=== PATIENT | male | born 1995 | race African-American/Black ===

== ENCOUNTER 2017-01-06 19:43 | Emergency (ER) | payer MEDICAID ==
[~2017-01-06] VITALS: Ht 185.4 cm; Wt 98.0 kg
[~2017-01-06 19:43] MED LIST: ALBU05
[2017-01-06] MEDS ORDERED: KETOROLAC 30MG/ML VIAL IV STA (20:50)
[2017-01-06] MEDS ORDERED: ONDANSETRON HCL 4MG/2ML VIAL IV STA (20:50)
[2017-01-06] MEDS ORDERED: SODIUM CHLORIDE 0.9% 1,000 ML IV ONE (20:50)
[2017-01-06 21:26] LABS: BASOPHILS % 0.3 % (0.0-2.0); EOSINOPHILS % 0.5 % (0.0-5.0); HEMATOCRIT. 37.1 % (42.0-52.0); HEMOGLOBIN. 12.3 g/dL (14.0-18.0); LYMPHOCYTES % 12.5 % (20.0-50.0); MEAN CORPUSCULAR HEMOGLOBIN 29.3 pg (28.0-32.0); MEAN CORPUSCULAR HGB CONC 33.1 g/dL (31.0-37.0); MEAN CORPUSCULAR VOLUME 88.5 fL (80.0-94.0); MEAN PLATELET VOLUME 10.1 fl (7.4-10.4); MONOCYTES % 10.7 % (2.0-8.0); PLATELET 166 x1000/uL (130-400); RED BLOOD CELL COUNT 4.19 mill/uL (4.7-6.1); RED CELL DISTRIBUTION WIDTH 13.3 % (11.6-14.6); WHITE BLOOD COUNT 11.1 x1000/uL (4.5-11.0)
[2017-01-06 21:30] VITALS: BP 161/99
[2017-01-06 21:30] LABS: CHLORIDE 107 mEq/L (98-107); INDEX HEMOLYSI 1 (1-3); INDEX ICTERIC 1 (1-4); INDEX LIPEMIC 1 (1-3)
[2017-01-06 21:38] LABS: ALANINE AMINOTRANSFERASE 23 IU/L (13-61); ALBUMIN 3.8 g/dL (3.4-5.0); ANION GAP 15; CALCIUM 8.8 mg/dL (8.5-10.1); CARBON DIOXIDE 23 mEq/L (21-32); UREA NITROGEN BLOOD 9 mg/dL (7-21); eGFR > 60 mL/min (>60)
== END 2017-01-06 23:43 | disposition home or self-care (01) ==
LOC: ER 19:44
DX: R51 Headache (principal); Z79.899 Other long term (current) drug therapy; J45.909 Unspecified asthma, uncomplicated; F12.10 Cannabis abuse, uncomplicated
CPT/HCPCS: 36415; 70450; 80053; 85025; 96374; 96375; 99285; C1893; J1885; J2405; J7030; Z7610

== ENCOUNTER 2017-04-08 21:25 | Emergency (ER) | payer MEDICAID ==
[~2017-04-08] VITALS: Ht 185.4 cm; Wt 105.0 kg
[2017-04-09] MEDS ORDERED: DIPHENHYDRAMINE 50MG/ML VIAL IV ONE (00:45)
[2017-04-09] MEDS ORDERED: FAMOTIDINE 20MG/2ML VIAL IV ONE (00:45)
[2017-04-09] MEDS ORDERED: DEXAMETHASONE 10MG/ML 1ML VIAL IV ONE (00:45)
[2017-04-09 05:02] VITALS: BP 140/100
== END 2017-04-09 05:08 | disposition home or self-care (01) ==
LOC: ER 21:25
DX: T78.40XA Allergy, unspecified, initial encounter (principal); J45.909 Unspecified asthma, uncomplicated
CPT/HCPCS: 93005; 96374; 96375; 99284; J1100; J1200; J3490; Z7610

== ENCOUNTER 2017-06-15 22:02 | Emergency (ER) | payer MEDICAID ==
[~2017-06-15] VITALS: Ht 185.4 cm; Wt 100.0 kg
[2017-06-15 22:04] VITALS: BP 121/46
== END 2017-06-16 05:42 | disposition left against medical advice (07) ==
LOC: ER 22:04
DX: L50.9 Urticaria, unspecified (principal); Z53.21 Procedure and treatment not carried out due to patient leaving prior to being seen by health care provider

== ENCOUNTER 2021-06-20 05:57 | Emergency (ER) | payer MEDICAID ==
[~2021-06-20] VITALS: Ht 188 cm; Wt 139.0 kg
[2021-06-20] MEDS ORDERED: IPRATROPIUM BROMIDE (0.02%) 0.5MG/2.5ML NEB HHN STA (06:13)
[2021-06-20] MEDS ORDERED: ALBUTEROL (0.083%) 2.5MG/3ML NEB HHN STA (06:13)
[2021-06-20] MEDS ORDERED: METHYLPREDNISOLONE SOD SUCC 125 MG/2 ML VIAL IV STA (06:13)
[2021-06-20] MEDS ORDERED: MAGNESIUM 2 G PREMIX 50 ML IV ONE (06:15)
[2021-06-20] MEDS ORDERED: SODIUM CHLORIDE 0.9% 1,000 ML IV ONE (07:15)
[2021-06-20] MEDS ORDERED: ALBU05 NEB (10:03)
[2021-06-20] MEDS ORDERED: ALBU6.7H15 INH (10:03)
[2021-06-20] MEDS ORDERED: P50 MT (10:03)
[2021-06-20 10:10] VITALS: BP 139/74
== END 2021-06-20 10:30 | disposition home or self-care (01) ==
LOC: ER 05:57
DX: J45.901 Unspecified asthma with (acute) exacerbation (principal); Z79.899 Other long term (current) drug therapy
CPT/HCPCS: 71045; 94640; 96365; 96375; 99284; J2930; J3475; J7030; Z7610; A4315

== ENCOUNTER 2021-09-15 12:26 | Emergency (ER) | payer MEDICAID ==
[~2021-09-15] VITALS: Ht 188 cm; Wt 121.0 kg
[~2021-09-15 12:26] MED LIST changes: +ALBU05 NEB; +ALBU6.7H15 INH; +P50 MT
[2021-09-15 13:00] VITALS: BP 147/79
[2021-09-15] MEDS ORDERED: ALBU05 NEB (13:10)
[2021-09-15] MEDS ORDERED: MED4 MT (13:10)
[2021-09-15] MEDS ORDERED: ALBU18HF2 IH (13:10)
== END 2021-09-15 12:44 | disposition home or self-care (01) ==
LOC: ER 12:26
DX: R06.02 Shortness of breath (principal); J45.909 Unspecified asthma, uncomplicated
CPT/HCPCS: 99282

== ENCOUNTER 2021-10-30 00:19 | Emergency (ER) | payer MEDICAID ==
[~2021-10-30] VITALS: Ht 190.5 cm; Wt 118.0 kg
[~2021-10-30 00:19] MED LIST changes: +ALBU18HF2 IH; +MED4 MT
[2021-10-30] MEDS ORDERED: IPRATROPIUM/ALBUTEROL 0.5-3(2.5)MG/3ML NEB HHN ONE ×2 (00:30→01:30)
[2021-10-30] MEDS ORDERED: DEXAMETHASONE 10 MG/ML VIAL IM ONE (00:30)
[2021-10-30] MEDS ORDERED: ALBU6.7H9 INH (03:22)
[2021-10-30 03:30] VITALS: BP 125/59
== END 2021-10-30 04:01 | disposition home or self-care (01) ==
LOC: ER 00:19
DX: J45.901 Unspecified asthma with (acute) exacerbation (principal)
CPT/HCPCS: 71045; 94640; 96372; 99284; J1100; Z7610